=== PATIENT | female | born 1995 | race Caucasian/White ===

== ENCOUNTER 2020-04-19 19:11 | Emergency (ER) | payer BC ==
[~2020-04-19] VITALS: Ht 162.6 cm; Wt 61.4 kg
[2020-04-19] MEDS: ondansetron 4mg rapidly disintigrating tab PO ONE (19:40)
--- NOTE | 2020-04-19 19:55 | NUR ---
PATIENTS MOTHER CALLED LEFT PHONE # [phone]
--- NOTE | 2020-04-19 19:56 | NUR ---
ATTEMPTED TO PROVIDE URINE SAMPLE, PT STATES UNABLE AT THIS TIME AND WILL CONTINUE TO ATTEMPT AGAIN LATER
[2020-04-19 20:12] LABS: BASOPHILS % (AUTO) 0.2 % (0-1); EOSINOPHILS % (AUTO) 0 % (0-6); HEMATOCRIT 40.6 % (35.0-45.0); HEMOGLOBIN 13.8 g/dl (12.0-16.0); LYMPHOCYTES # (AUTO) 0.5 X10'3 (1.1-4.8); LYMPHOCYTES % (AUTO) 2.7 % (21-51); MEAN CORPUSCULAR HGB CONC 33.9 g/dL (33.0-36.5); MEAN CORPUSCULAR VOLUME 91.4 FL (78-98); MEAN PLATELET VOLUME 7.7 FL (7.4-10.4); MONOCYTES # (AUTO) 0.3 X10'3 (0-0.9); MONOCYTES % (AUTO) 1.8 % (2-12); NEUTROPHILS # (AUTO) 17.7 X10'3 (1.8-7.7); NEUTROPHILS % (AUTO) 95.3 % (42-75); PLATELET COUNT 335 X10'3 (140-440); RED BLOOD COUNT 4.45 X10'6 (4.20-5.60); RED CELL DISTRIBUTION WIDTH 13.4 % (11.5-14.5); WHITE BLOOD COUNT 18.6 X10'3 (4.5-11.0)
[2020-04-19] MEDS: mag hydrox/Alum hydrox/simeth 30ml oral suspension PO ONE (20:12)
[2020-04-19] MEDS: famotidine 20mg tablet PO ONE (20:12)
[2020-04-19] MEDS: LIDOcaine Viscous 15ml cup MM ONE (20:12)
[2020-04-19 20:31] LABS: ALANINE AMINOTRANSFERASE 53 U/L (12-78); ALBUMIN 4.7 G/DL (3.4-5.0); ALBUMIN/GLOBULIN RATIO 1.2 (1.1-1.5); ALKALINE PHOSPHATASE 107 IU/L (46-116); ANION GAP 19 (8-16); ASPARTATE AMINO TRANSFERASE 44 U/L (10-37); BILIRUBIN,TOTAL 1.4 MG/DL (0.1-1.0); BLOOD UREA NITROGEN 13 MG/DL (7-18); BUN/CREATININE RATIO 13.7 (6.6-38.0); CALCIUM 9.4 MG/DL (8.5-10.1); CHLORIDE 103 MMOL/L (99-107); CREATININE 0.95 MG/DL (0.40-0.90); GLUCOSE 150 MG/DL (70-104); LIPASE < 50 U/L (73-393); POTASSIUM 3.4 MMOL/L (3.5-5.1); SODIUM 142 MMOL/L (135-145); TOTAL CARBON DIOXIDE 19.6 MMOL/L (24-32); TOTAL PROTEIN 8.6 G/DL (6.4-8.2); eGFR 72 ML/MIN
[2020-04-19] MEDS: LORazepam 2 mg/ml vial IV ONE (21:01)
[2020-04-19] MEDS: proCHLORperazine 10 MG/2 ml inj IV ONE (21:01)
[2020-04-19] MEDS: normal saline 1000ML IV soln IVB ONE (21:01)
[2020-04-19 21:04] LABS: HCG SERUM QL NEGATIVE
[2020-04-19 21:12] LABS: CLARITY,URINE CLEAR (Clear); COLOR,URINE YELLOW (Yellow); GLUCOSE, URINE NEGATIVE (Neg); KETONES,URINE >=80 mg/dl (Neg); LEUKOCYTE ESTERASE ,URINE NEGATIVE (Neg); NITRITES, URINE NEGATIVE (Neg); OCCULT BLOOD,URINE TRACE-INTACT (Neg); PROTEIN,URINE 30 mg/dl (Neg); UROBILINOGEN,URINE 0.2 E.U/dL (0.2-1.0)
[2020-04-19 21:13] LABS: UA COLLECTION TYPE CLN CATCH MIDSTREAM
--- NOTE | 2020-04-19 21:19 | NUR ---
TALKED WITH PT MOTHER REBECCA AND GIVEN UPDATE WITH PT PERMISSION.
[2020-04-19 21:20] LABS: BACTERIA,URINE 3+ /HPF (Neg); RBC,URINE 0-2 /HPF (0-2); SQUAMOUS EPITHELIAL CELL,UR MANY /LPF (FEW); WBC,URINE 0-4 /HPF (0-4)
[2020-04-19] MEDS ORDERED: ONDA4TAB6 PO (22:12)
[2020-04-19 22:50] VITALS: BP 136/78
== END 2020-04-19 23:27 | disposition home or self-care (01) ==
LOC: ER 19:11
DX: R10.10 Upper abdominal pain, unspecified (principal); Z20.828 Contact with and (suspected) exposure to other viral communicable diseases; Z88.1 Allergy status to other antibiotic agents; Z79.899 Other long term (current) drug therapy
CPT/HCPCS: 36415; 74176; 80053; 81001; 83690; 84703; 85025; 87635; 96361; 96374; 96375; 99285; J0780; J2060; J7030

== ENCOUNTER 2022-08-03 06:37 | Emergency (ER) | payer BC ==
[~2022-08-03] VITALS: Ht 167.6 cm; Wt 50.8 kg
[~2022-08-03 06:37] MED LIST: ONDA4TAB6 PO
[2022-08-03 06:45] VITALS: BP 136/82
[2022-08-03] MEDS ORDERED: AMOX-101 PO (06:59)
[2022-08-03] MEDS ORDERED: amoxicillin 250mg capsule PO ONE (07:00)
== END 2022-08-03 07:11 | disposition home or self-care (01) ==
LOC: ER 06:37
DX: J02.9 Acute pharyngitis, unspecified (principal); Z79.899 Other long term (current) drug therapy
CPT/HCPCS: 99283

== ENCOUNTER 2023-07-05 23:25 | Emergency (ER) | payer BC ==
[~2023-07-05] VITALS: Ht 160 cm; Wt 56.8 kg
[2023-07-05 23:34] VITALS: BP 142/78; PULSE 80; RESP 14; TEMP 98.9; O2SAT 99
[2023-07-05] MEDS ORDERED: IBUP-1985 PO (23:42)
[2023-07-05] MEDS ORDERED: AMOX-580 PO (23:42)
[2023-07-05] MEDS ORDERED: PRED20TA PO (23:42)
[2023-07-05] MEDS: amox tr/potassium clavulanate 875/125mg TAB PO ONE (23:51)
[2023-07-05] MEDS: ibuprofen tablet 400 MG TABLET PO ONE (23:51)
[2023-07-05] MEDS: dexamethasone sod phosphate 10mg/ml inj PO ONE (23:51)
== END 2023-07-05 23:56 | disposition home or self-care (01) ==
LOC: ER 23:25
DX: J02.9 Acute pharyngitis, unspecified (principal); Z79.2 Long term (current) use of antibiotics; Z79.1 Long term (current) use of non-steroidal anti-inflammatories (NSAID); Z79.899 Other long term (current) drug therapy
CPT/HCPCS: 99284; J1100

== ENCOUNTER 2023-07-10 04:56 | Emergency (ER) | payer BC ==
[~2023-07-10 04:56] MED LIST changes: +AMOX-580 PO; +IBUP-1985 PO; +PRED20TA PO
[2023-07-10 05:52] VITALS: BP 137/92; PULSE 74; RESP 16; O2SAT 100
== END 2023-07-10 05:53 | disposition home or self-care (01) ==
LOC: ER 04:56 → EEVIPCON 04:56 → ER 05:53
DX: J36 Peritonsillar abscess (principal); Z79.2 Long term (current) use of antibiotics; Z79.1 Long term (current) use of non-steroidal anti-inflammatories (NSAID); Z79.899 Other long term (current) drug therapy
CPT/HCPCS: 10160; 99284

== ENCOUNTER 2023-11-30 11:30 | Emergency (ER) | payer BC, OTHER ==
[~2023-11-30] VITALS: Ht 162.6 cm; Wt 59.1 kg
[2023-11-30 11:30] VITALS: BP 139/93; PULSE 94; RESP 16; TEMP 98; O2SAT 98
[~2023-11-30 11:30] MED LIST changes: -AMOX-580 PO; -PRED20TA PO
== END 2023-11-30 12:50 | disposition home or self-care (01) ==
LOC: ER 11:30
DX: S92.251A Displaced fracture of navicular [scaphoid] of right foot, initial encounter for closed fracture (principal); Z79.1 Long term (current) use of non-steroidal anti-inflammatories (NSAID); Z79.899 Other long term (current) drug therapy; W22.8XXA Striking against or struck by other objects, initial encounter; Y93.89 Activity, other specified; Y92.89 Other specified places as the place of occurrence of the external cause; Y99.8 Other external cause status
CPT/HCPCS: 73630; 99283; L4360

== ENCOUNTER 2023-12-06 12:03 | Outpatient (CLI) | payer OTHER | END 2023-12-06 23:59 | disposition home or self-care (01) | LOC: MRI 12:03 | PROVIDERS: ATTEND Nurse Practitioner | DX: S82.51XA Displaced fracture of medial malleolus of right tibia, initial encounter for closed fracture (principal); S99.911A Unspecified injury of right ankle, initial encounter; X58.XXXA Exposure to other specified factors, initial encounter; Y93.89 Activity, other specified; Y92.89 Other specified places as the place of occurrence of the external cause; Y99.8 Other external cause status | CPT/HCPCS: 73721 ==

== ENCOUNTER 2024-02-11 04:38 | Emergency (ER) | payer OTHER ==
[~2024-02-11] VITALS: Ht 167.6 cm; Wt 56.8 kg
[2024-02-11] MEDS: ondansetron 4mg rapidly disintigrating tab PO ONE (05:46)
[2024-02-11] MEDS: emtricitabine/tenofovir 200mg/300mg tablet PO ONE ×2 (05:47→05:48)
[2024-02-11 05:49] VITALS: BP 125/75; PULSE 65; RESP 16; TEMP 98.2; O2SAT 98
== END 2024-02-11 05:54 | disposition home or self-care (01) ==
LOC: ER 04:39 → EEVIPCON 04:39 → ER 05:54
DX: S61.231A Puncture wound without foreign body of left index finger without damage to nail, initial encounter (principal); Z79.1 Long term (current) use of non-steroidal anti-inflammatories (NSAID); Z79.899 Other long term (current) drug therapy; W46.0XXA Contact with hypodermic needle, initial encounter; Y93.89 Activity, other specified; Y92.89 Other specified places as the place of occurrence of the external cause; Y99.8 Other external cause status
CPT/HCPCS: 99283